=== PATIENT | female | born 1990 | race Caucasian/White ===

== ENCOUNTER 2021-11-01 21:36 | Emergency (ER) | payer OTHER ==
[~2021-11-01] VITALS: Ht 170.2 cm; Wt 60.8 kg
[2021-11-01 21:39] VITALS: BP 122/96
--- NOTE | 2021-11-01 21:42 | NUR ---
Called security to escort patient to lobby.
--- NOTE | 2021-11-01 22:01 | NUR ---
PATIENT LEFT WITHOUT BEING SEEN BY DR. Knight. NO FURTHER CARE PROVIDED FOR PATIENT.
--- NOTE | 2021-11-01 22:01 | NUR ---
Patient walked out ER.
== END 2021-11-01 22:01 | disposition left against medical advice (07) ==
LOC: MED 21:36
DX: F10.129 Alcohol abuse with intoxication, unspecified (principal); Z53.21 Procedure and treatment not carried out due to patient leaving prior to being seen by health care provider